=== PATIENT | female | born 1965 | race African-American/Black ===

== ENCOUNTER → 2016-08-22 | Outpatient (REF) | payer OTHER ==
[~2016-08-22] MED LIST: /PANT40TA OR; ALLE25CA OR; CLINDAMYCIN OR; COUMADIN OR; LIDO5DIS; LYRI75CA; OXYC10TA12; OXYC5CAP4; POTA20TA; PREG100CA; PROV90AE; SOMA350T; SOMA350T OR; TOPI100T; TOPI100T PO; TOPI50TA OR; TOPI50TA PO; TRAM50TA2; TYLE500T53 OR; VITA500T; WARF5VL; [UNRECOGNIZED DRUG - OTHER] TOP; kenalog TOP; prednisone OR
[2016-08-22 21:04] LABS: INR 2.58
== END ==
LOC: M SFHCADAM 17:28
PROVIDERS: ATTEND Family Medicine
DX: Z51.81 Encounter for therapeutic drug level monitoring (principal); Z79.01 Long term (current) use of anticoagulants

== ENCOUNTER → 2017-03-10 | Outpatient (CLI) | payer OTHER ==
[~2017-03-10] MED LIST changes: +PERC5TAB12 PO; +PRED20TA; +XARE20TA
--- NOTE | 2017-03-10 12:51 | REP ---
MRI LUMBAR SPINE WITHOUT CONTRAST: HISTORY: Low back pain and bilateral leg pain, comparison radiographs are from February 25, 2017. TECHNIQUE: Sagittal and axial T1 and T2-weighted scans are acquired in the usual fashion with and without fat saturation. Sequences include spin echo, turbo spin-echo, and STIR imaging sequences. MRI FINDINGS: Lumbar vertebral body heights are preserved. Alignment is normal. Pedicles and posterior elements are intact. There is no evidence of spondylolysis or spondylolisthesis. No extra spinal abnormality is observed. Normal caliber aorta is seen. Conus medullaris is normal in position and appearance at the L1-L2 disc level. Axial and sagittal images at the L1-2, L2-3, and L3-4 disc level show no significant abnormality. At L4-5, there is diffuse disc bulging and a right lateral and right foraminal disc bulge is seen. There is mild neural foraminal encroachment. There is mild facet hypertrophy bilaterally at L4-5. At L5-S1, there is mild to moderate bilateral facet osteoarthritic hypertrophy. There is diffuse disc bulging. There is a left foraminal disc protrusion producing neural foraminal encroachment at L5-S1. The right neural foramen is adequate. No central canal stenosis is seen. IMPRESSION: Left foraminal disc protrusion at L5-S1 producing neural foraminal narrowing. Right foraminal disc bulging at L4-5 with mild neural foraminal narrowing on the right at this level. Osteoarthritic facet hypertrophy at both L4-5 and L5-S1. Signed by Norris Escobar MD 03/10/2017 03:45 P
== END ==
LOC: M RAD 09:54
PROVIDERS: ATTEND Family Medicine
DX: M54.5 Low back pain (principal)

== ENCOUNTER → 2017-09-26 | Outpatient (REF) | payer OTHER | LOC: M SFHCLERA 17:07 | DX: J02.9 Acute pharyngitis, unspecified (principal) ==

== ENCOUNTER → 2018-01-24 | Outpatient (CLI) | payer OTHER | LOC: M LRY 16:13 | DX: R07.1 Chest pain on breathing (principal); R05 Cough; M51.34 Other intervertebral disc degeneration, thoracic region | CPT/HCPCS: 71046 ==

== ENCOUNTER → 2018-01-24 | Outpatient (REF) | payer OTHER | LOC: M SFHCLERA 16:10 | DX: R53.81 Other malaise (principal) ==

== ENCOUNTER → 2018-07-15 | Outpatient (REF) | payer OTHER | LOC: M SFHCWAGY 15:03 | PROVIDERS: ATTEND Nurse Practitioner Family | DX: N84.1 Polyp of cervix uteri (principal) ==

== ENCOUNTER → 2018-07-23 | Outpatient (REF) | payer OTHER ==
[~2018-07-23] MED LIST changes: -/PANT40TA OR; +PROT1TAB2 OR
[2018-07-23 17:37] LABS: HEMATOCRIT 42.6 % (36.0-47.0); HEMOGLOBIN 12.8 g/dl (12.0-15.5); MEAN CORPUSCULAR HEMOGLOBIN 25.5 pg (27.0-33.0); PLATELET COUNT, AUTOMATED 272 10^3/uL (150-450); RED BLOOD COUNT 5.01 10^6/uL (4.00-5.40); WHITE BLOOD COUNT 6.4 10^3/uL (4.0-10.0)
[2018-07-23 18:16] LABS: ALBUMIN 4.2 GM/DL (3.2-5.2); ALT/SGPT 20 U/L (12-78); BILIRUBIN,TOTAL 0.3 MG/DL (0.2-1.0); BLOOD UREA NITROGEN 19 MG/DL (7-18); CALCIUM LEVEL 9.1 MG/DL (8.5-10.1); CARBON DIOXIDE LEVEL 25 MEQ/L (21-32); CHLORIDE LEVEL 108 MEQ/L (98-107); CHOLESTEROL LEVEL 208 MG/DL (<200); CHOLESTEROL RISK RATIO 3.851 (<5); CREATININE FOR GFR 0.74 MG/DL (0.55-1.30); FREE T4 0.98 NG/DL (0.76-1.46); GLOMERULAR FILTRATION RATE > 60.0 (>51); GLUCOSE, FASTING 87 MG/DL (70-100); HDL CHOLESTEROL 54 MG/DL (>40); LDL CHOLESTEROL 141 MG/DL (<100); NON-HDL-C 154 MG/DL; POTASSIUM SERUM 4.1 MEQ/L (3.5-5.1); SODIUM LEVEL 141 MEQ/L (136-145); TOTAL PROTEIN 7.4 GM/DL (6.4-8.2); TRIGLYCERIDES LEVEL 63 MG/DL (<150)
== END ==
LOC: M SFHCLERA 12:32
PROVIDERS: ATTEND Family Medicine
DX: Q07.00 Arnold-Chiari syndrome without spina bifida or hydrocephalus (principal); I26.99 Other pulmonary embolism without acute cor pulmonale; Z79.01 Long term (current) use of anticoagulants; E78.5 Hyperlipidemia, unspecified; E55.9 Vitamin D deficiency, unspecified

== ENCOUNTER → 2018-09-09 | Outpatient (CLI) | payer OTHER ==
[~2018-09-09] MED LIST changes: +PROHANCE 279.3MG/ML 15ML VIAL (A9576) As Ordered ONE; +PROHANCE 279.3MG/ML 5ML VIAL (A9576) As Ordered ONE
--- NOTE | 2018-09-09 13:05 | REP ---
MR CERVICAL SPINE WITHOUT AND WITH CONTRAST: HISTORY: Left arm weakness. CONTRAST: ProHance 20 mL. COMPARISON: 02/11/2016. The patient is status post suboccipital craniectomy for cerebellar tonsillar ectopia. A disc bulge is present at the C5-6 level. There is minimal effacement of the thecal sac without spinal cord compression. The C5 neural foramina are patent. There is no other disc bulge or herniation. A syrinx is present in the spinal cord. The syrinx extends from the C2 level inferior to T3. The inferior most extent of the syrinx is not seen in the present examination. The syrinx measures 3.8 cm in transverse by 2.2 cm in AP dimensions at the C5 level. Increased signal intensity on T2-weighted images is present surrounding the syrinx. The spinal cord is small in size. This represents myelomalacia. There is posterior retraction of the left posterior aspect of the spinal cord at the C5 level. The spinal cord is adherent to the dura at this level secondary to adhesions. There is no abnormal enhancement. Normal signal intensity is present in the cervical vertebral bodies. IMPRESSION: 1. The patient is status post suboccipital craniectomy for cerebellar tonsillar ectopia. 2. Cervical and thoracic spinal cord syrinx. The syrinx appears unchanged in size compared to the previous study. 3. There is posterior retraction of the cervical spinal cord at the C5-6 level where the spinal cord is adherent to the dura secondary to adhesions. 4. There is cervical spondylosis at the C5-6 level without spinal cord compression. Electronically Signed by Javier German MD 09/09/2018 01:14 P
--- NOTE | 2018-09-09 13:09 | REP ---
MR BRAIN WITHOUT AND WITH CONTRAST: HISTORY: Recurrent headache. CONTRAST: ProHance 20 mL. COMPARISON: 02/11/2016. The patient is status post suboccipital craniectomy for cerebellar tonsillar ectopia. Several punctate areas of increased signal intensity on T2-weighted images are present in the periventricular and subcortical white matter. This represents small vessel ischemic disease. There is no intraparenchymal hemorrhage, infarct, mass, or midline shift. There is no abnormal enhancement. The ventricular system is normal in appearance. There is no extracerebral collection. The sinuses are clear. IMPRESSION: 1. The patient is status post suboccipital craniectomy for cerebellar tonsillar ectopia. 2. Minimal small vessel ischemic disease. Electronically Signed by Javier German MD 09/09/2018 01:14 P
== END ==
LOC: M RAD 10:29
PROVIDERS: ATTEND Family Medicine
DX: R51 Headache (principal); R29.898 Other symptoms and signs involving the musculoskeletal system; Q07.00 Arnold-Chiari syndrome without spina bifida or hydrocephalus; M50.222 Other cervical disc displacement at C5-C6 level; G95.0 Syringomyelia and syringobulbia; M47.892 Other spondylosis, cervical region
CPT/HCPCS: 70553; 72156; A9576

== ENCOUNTER → 2018-10-07 | Outpatient (REF) | payer OTHER ==
[~2018-10-07] MED LIST changes: -PROHANCE 279.3MG/ML 15ML VIAL (A9576) As Ordered ONE; -PROHANCE 279.3MG/ML 5ML VIAL (A9576) As Ordered ONE
[2018-10-13 16:11] LABS: HPV HYBRID CAPTURE II Negative (Negative)
== END ==
LOC: M SFHCWAGY 11:52
PROVIDERS: ATTEND Nurse Practitioner Family
DX: Z12.4 Encounter for screening for malignant neoplasm of cervix (principal)
CPT/HCPCS: 87624; G0123

== ENCOUNTER → 2018-10-07 | Outpatient (CLI) | payer OTHER ==
--- NOTE | 2018-10-07 13:20 | REPMRS ---
Patient History The patient states she had a clinical breast exam in 09/2018. Family history of breast cancer at age 42 in maternal aunt, breast cancer at age 56 in maternal cousin. Benign excisional biopsy of the left breast, 1980. No Hormone Replacement Therapy 3D TOMOSYNTHESIS WAS PERFORMED. [facility] lifetime risk for breast cancer is 9.1%. Digital Woman Screen Mammo: October 07, 2018 - Exam #: [id number] Bilateral CC and MLO view(s) were taken. Technologist: Randa Solano, Technologist Prior study comparison: February 22, 2013, digital woman screen mammo performed at [facility]. August 30, 2008, bilateral bilat screen digital mammo, performed at [facility]. FINDINGS: There are scattered fibroglandular densities. There has been no change in the appearance of the mammogram from the prior studies. There is a mild amount of residual fibroglandular tissue which is fairly symmetric. There is no interval development of dominant mass, architectural distortion, or clustered microcalcification suggestive of malignancy. Assessment: BI-RADS/ACR category 1 mammogram. Negative Mammogram. Recommendation Routine screening mammogram in 1 year (for women over age 40). This mammogram was interpreted with the aid of an FDA-approved computer-aided dectection system. Electronically Signed By: Rodolfo Aguayo MD 10/07/18 [id number]
== END ==
LOC: M WHC 11:00
PROVIDERS: ATTEND Nurse Practitioner Family
DX: Z12.31 Encounter for screening mammogram for malignant neoplasm of breast (principal)

== ENCOUNTER → 2018-10-11 | Outpatient (CLI) | payer OTHER ==
--- NOTE | 2018-10-11 12:26 | REP ---
Clinical: Periumbilical pain. Technique: Real time guerra scale ultrasound examination using curved array transducer. Findings: Directed ultrasound examination of the periumbilical region demonstrates no mass, fluid collection, or hernia. Impression: Unremarkable examination.
--- NOTE | 2018-10-11 16:35 | REP ---
Clinical: Pelvic pain. Technique: Transabdominal and transvaginal pelvic ultrasound with color Doppler evaluation of the ovaries. Findings: Bladder is unremarkable and measures 9.0 x 7.8 x 6.0 cm. Enlarged heterogeneous myomatous uterus measures 11.1 x 4.6 x 5.2 cm and includes an 8.6 x 5.2 x 5.1 cm fibroid originating from the right lower uterine segment. Smaller subtle myomatous changes cannot be excluded. The endometrial complex appears somewhat thickened to 15 mm. The bilateral ovaries are normal in appearance and without evidence for torsion. Right ovary measures 2.4 x 1.3 x 1.8 cm; RI 0.62. Left ovary measures 2.5 x 1.0 x 1.8 cm; RI 0.55. No pelvic fluid or adnexal mass lesion. Impression: 1. Heterogeneous myomatous uterus with large right uterine subserosal fibroid.
== END ==
LOC: M WHC 10:14
PROVIDERS: ATTEND Nurse Practitioner Family
DX: R19.05 Periumbilic swelling, mass or lump (principal); D25.9 Leiomyoma of uterus, unspecified

== ENCOUNTER 2018-11-18 17:32 | Emergency (ER) | payer OTHER ==
[~2018-11-18] VITALS: Ht 162.6 cm; Wt 107.3 kg
[2018-11-18] MEDS ORDERED: TRAM50TA2 (17:42)
[2018-11-18] MEDS ORDERED: PERCOCET 5MG/325MG TAB PO ONE (20:30)
[2018-11-18] MEDS ORDERED: diazePAM 10 MG TAB PO ONE (20:30)
--- NOTE | 2018-11-18 21:12 | REPVR ---
EXAM: CT Lumbar Spine Without Contrast EXAM DATE/TIME: 11/18/2018 8:30 PM CLINICAL HISTORY: 53 years old, female; Low back pain; Additional info: Severe pain, no injury TECHNIQUE: Imaging protocol: Computed tomography images of the lumbar spine without contrast. Coronal and sagittal reformatted images were created and reviewed. Radiation optimization: All CT scans at this facility use at least one of these dose optimization techniques: automated exposure control; mA and/or kV adjustment per patient size (includes targeted exams where dose is matched to clinical indication); or iterative reconstruction. COMPARISON: No relevant prior studies available. FINDINGS: Vertebrae: The lumbar vertebra appear in alignment. The facet joints appear in alignment. Discs/Spinal canal/Neural foramina: L5-S1: There is moderate broad-based disc protrusion causing moderate impression on the thecal sac. There is severe bilateral L5 neural foramina narrowing greater on the left and this is secondary to disc protrusion into the caudal aspect of the L5 neural foramina. L4-L5: There is a moderate broad-based disc protrusion causing moderate impression on the thecal sac. There is severe bilateral L4 neural foramina narrowing secondary to disc protrusion into the caudal aspect of the neural foramina. L3-L4: There is mild broad-based bulge of the disc. IMPRESSION: 1. The L4-L5 level demonstrates moderate broad-based disc protrusion and severe bilateral L4 neural foramina narrowing. 2. The L5-S1 level demonstrates moderate broad-based disc protrusion and severe bilateral L5 neural foramina narrowing. Electronically signed by: Rupert Winters On 11/18/2018 21:12:16 PM
[2018-11-18] MEDS ORDERED: PRED20TA PO (21:30)
[2018-11-18] MEDS ORDERED: ROBA500T PO (21:30)
[2018-11-18 21:40] VITALS: BP 106/64
--- NOTE | 2018-11-22 21:37 | ED PDOC ---
Post-Departure Follow-Up ranjit correa and jaymie faxed formal report of ct ls spine for fu Saurabh Bradley MD Nov 22, 2018 21:37
== END 2018-11-18 21:41 | disposition home or self-care (01) ==
LOC: M ED 17:32
DX: M51.26 Other intervertebral disc displacement, lumbar region (principal); S39.012A Strain of muscle, fascia and tendon of lower back, initial encounter; X58.XXXA Exposure to other specified factors, initial encounter; Y92.89 Other specified places as the place of occurrence of the external cause; Q07.00 Arnold-Chiari syndrome without spina bifida or hydrocephalus; Z79.899 Other long term (current) drug therapy; Z88.1 Allergy status to other antibiotic agents; Z88.2 Allergy status to sulfonamides; Z91.041 Radiographic dye allergy status

== ENCOUNTER → 2019-01-08 | Outpatient (CLI) | payer OTHER ==
[~2019-01-08] MED LIST changes: +PRED20TA PO; +ROBA500T PO
--- NOTE | 2019-01-08 15:52 | REPVR ---
PROCEDURE INFORMATION: Exam: MR Lumbar Spine Without Contrast. Exam date and time: 01/08/2019 1:58 PM Clinical history: 54 years old, female; Low back pain; Additional info: Spinal stenosis L region TECHNIQUE: Imaging protocol: Multiplanar magnetic resonance images of the lumbar spine without intravenous contrast. COMPARISON: MRI-Spine, L.S. without con 03/10/2017 10:21 AM FINDINGS: Vertebral body heights are intact. Alignment is maintained. No pars defect is identified. The conus is unremarkable in appearance, with its tip at the L1-2 level. There are varying degrees of disc desiccation indicating intervertebral disc degeneration. This is generally mildly progressive. There are again some degenerative endplate changes at L5-S1. A similar 8 mm high T2 signal right renal lesion probably represents a cyst. The visualized abdominal structures appear otherwise unremarkable. L1-2: No significant disc displacement. L2-3: No significant disc displacement. L3-4: Mildly larger disc bulge combining with facet arthrosis to lead to mildly increased, now mild bilateral neural foraminal narrowing without significant spinal stenosis. There is small fluid in the left facet joint. L4-5: Mildly larger disc bulge combining with facet arthrosis to lead to mildly increased, now mild to moderate right and mild left neural foraminal narrowing without significant spinal stenosis. There is small fluid in the right facet joint. L5-S1: Mildly larger diffuse bulge with a broad-based left paracentral/foraminal protrusion combining with facet arthrosis to lead to mildly increased, now mild to moderate right and moderate left neural foraminal narrowing with very mild new left lateral recess narrowing, without significant central canal stenosis. If surgery is considered, recommend level confirmation. IMPRESSION: Multilevel disc desiccation indicating intervertebral disk degeneration, mildly progressive as compared with 03/10/17, with disc displacements as described. Disc displacements are mildly larger as above. Electronically signed by: Moy Elizabeth On 01/08/2019 15:52:27 PM
== END ==
LOC: M RAD 12:24
PROVIDERS: ATTEND Orthopaedic Surgery
DX: M48.062 Spinal stenosis, lumbar region with neurogenic claudication (principal)

== ENCOUNTER → 2019-01-14 | Outpatient (REF) | payer OTHER ==
[2019-01-14 15:24] LABS: BASO % 0.6 % (0.0-1.0); EOS # 0.1 10^3/uL (0.0-0.5); HEMATOCRIT 37.4 % (36.0-47.0); HEMOGLOBIN 11.7 g/dl (12.0-15.5); LYMPH # 2.9 10^3/uL (1.5-5.0); LYMPH % 39.9 % (24.0-44.0); MEAN CORPUSCULAR HGB CONC 31.3 g/dl (32.0-36.5); MEAN CORPUSCULAR VOLUME 83.1 fl (80.0-96.0); MONO # 0.6 10^3/uL (0.0-0.8); MONO % 8.1 % (0.0-5.0); NEUTROPHILS # 3.5 10^3/uL (1.5-8.5); NEUTROPHILS % 49.1 % (36.0-66.0); PLATELET COUNT, AUTOMATED 288 10^3/uL (150-450); WHITE BLOOD COUNT 7.2 10^3/uL (4.0-10.0)
[2019-01-14 15:33] LABS: C REACTIVE PROTEIN QUANTITATIV 1.19 MG/DL (0.00-0.30); TOTAL PROTEIN 6.8 GM/DL (6.4-8.2)
[2019-01-14 15:59] LABS: ERYTHROCYTE SEDIMENTATION RATE 31 mm/hr (0-30)
[2019-01-18 09:41] LABS: ALBUMIN 3.73 GM/DL (3.29-5.55); ALBUMIN % 54.8 % (55.8-66.1); ALPHA-1-GLOBULIN % 5.5 % (2.9-4.9); ALPHA-1-GLOBULINS 0.37 GM/DL (0.17-0.41); ALPHA-2-GLOBULINS 0.59 GM/DL (0.42-0.99); ALPHA-2-GLOBULINS % 8.7 % (7.1-11.8); BETA-1-GLOBULINS 0.45 GM/DL (0.28-0.60); BETA-1-GLOBULINS % 6.6 % (4.7-7.2); BETA-2-GLOBULINS 0.52 GM/DL (0.19-0.55); BETA-2-GLOBULINS % 7.7 % (3.2-6.5); GAMMA GLOBULIN % 16.7 % (11.1-18.8); GAMMA GLOBULINS 1.14 GM/DL (0.65-1.58)
== END ==
LOC: M LABDRAW1 12:52
PROVIDERS: ATTEND Orthopaedic Surgery
DX: M48.062 Spinal stenosis, lumbar region with neurogenic claudication (principal)

== ENCOUNTER → 2019-01-18 | Outpatient (CLI) | payer OTHER ==
--- NOTE | 2019-01-18 15:58 | REP ---
TRIPLE PHASE BONE SCAN LUMBAR REGION: Following the intravenous administration of 21.9 mCi technetium 99m MDP, the patient's lumbar region is imaged in the flow phase, immediate blood pool phase and three-hour delayed phase in multiple projections. I do not see significant abnormal blood flow or blood pooling. On delayed images, mild increased uptake is seen at the posterior facets of L3-4 and L4-5. No other significant abnormal uptake is seen in the lumbar region or in the pelvis. IMPRESSION: Mild increased uptake at the facets of L3-4 and L4-5 likely due to arthritis at these sites. Electronically Signed by Rodolfo Aguayo MD 01/19/2019 04:30 P
== END ==
LOC: M RAD 10:19
PROVIDERS: ATTEND Orthopaedic Surgery
DX: M48.062 Spinal stenosis, lumbar region with neurogenic claudication (principal)
CPT/HCPCS: 78315; A9503

== ENCOUNTER → 2019-01-27 | Outpatient (REF) | payer OTHER | LOC: M LAB REF 17:40 | PROVIDERS: ATTEND Obstetrics & Gynecology | DX: N85.8 Other specified noninflammatory disorders of uterus (principal) ==

== ENCOUNTER → 2019-02-24 | Outpatient (REF) | payer OTHER ==
[2019-02-24 19:16] LABS: HEMATOCRIT 39.8 % (36.0-47.0); HEMOGLOBIN 11.7 g/dl (12.0-15.5); MEAN CORPUSCULAR HEMOGLOBIN 25.3 pg (27.0-33.0); MEAN CORPUSCULAR HGB CONC 29.4 g/dl (32.0-36.5); PLATELET COUNT, AUTOMATED 275 10^3/uL (150-450); RED BLOOD COUNT 4.63 10^6/uL (4.00-5.40); WHITE BLOOD COUNT 6.8 10^3/uL (4.0-10.0)
[2019-02-24 19:46] LABS: ALBUMIN 3.6 GM/DL (3.2-5.2); ALT/SGPT 26 U/L (12-78); BILIRUBIN,TOTAL 0.3 MG/DL (0.2-1.0); BLOOD UREA NITROGEN 20 MG/DL (7-18); CALCIUM LEVEL 9.3 MG/DL (8.5-10.1); CARBON DIOXIDE LEVEL 25 MEQ/L (21-32); CHLORIDE LEVEL 111 MEQ/L (98-107); CREATININE FOR GFR 0.88 MG/DL (0.55-1.30); FREE T4 0.84 NG/DL (0.76-1.46); GLOMERULAR FILTRATION RATE > 60.0 (>51); GLUCOSE, FASTING 83 MG/DL (70-100); SODIUM LEVEL 142 MEQ/L (136-145); TOTAL PROTEIN 7.6 GM/DL (6.4-8.2)
[2019-02-24 19:47] LABS: VITAMIN B12 LEVEL 404 PG/ML (247-911)
[2019-02-24 19:49] LABS: FOLATE 17.3 NG/ML (>5.4)
== END ==
LOC: M SFHCADAM 16:18
PROVIDERS: ATTEND Family Medicine
DX: I26.99 Other pulmonary embolism without acute cor pulmonale (principal); G56.03 Carpal tunnel syndrome, bilateral upper limbs

== ENCOUNTER → 2019-02-24 | Outpatient (CLI) | payer OTHER ==
--- NOTE | 2019-02-24 17:32 | REP ---
Two-view chest: 02/24/2019. Indication: Preoperative evaluation. Comparison: 01/24/2018. Findings: The lungs are clear. There is no pleural effusion or pneumothorax. The cardiac silhouette is not enlarged. Impression: Clear lungs. Electronically Signed by Dimas Moyer DO 02/24/2019 05:23 P
== END ==
LOC: M ADAMS 16:54
PROVIDERS: ATTEND Family Medicine
DX: Z01.818 Encounter for other preprocedural examination (principal)

== ENCOUNTER → 2019-03-25 | Outpatient (REF) | payer OTHER ==
[~2019-03-25] MED LIST changes: +GABA-845 PO; +TIZA4TAB4 PO; +TOPI100T9 PO; +TOPI200T7 PO; +TRAM50TA2 PO; +VITA100T59 PO; -XARE20TA; +XARE20TA PO
[2019-03-25 11:56] LABS: HEMATOCRIT 41.9 % (36.0-47.0); HEMOGLOBIN 12.8 g/dl (12.0-15.5); MEAN CORPUSCULAR HEMOGLOBIN 25.5 pg (27.0-33.0); MEAN CORPUSCULAR HGB CONC 30.5 g/dl (32.0-36.5); MEAN CORPUSCULAR VOLUME 83.6 fl (80.0-96.0); PLATELET COUNT, AUTOMATED 279 10^3/uL (150-450); RED BLOOD COUNT 5.01 10^6/uL (4.00-5.40); WHITE BLOOD COUNT 7.1 10^3/uL (4.0-10.0)
[2019-03-25 12:07] LABS: INR 1.86; PROTHROMBIN TIME 21.2 SECONDS (11.8-14.0)
[2019-03-25 12:36] LABS: BLOOD UREA NITROGEN 19 MG/DL (7-18); CALCIUM LEVEL 9.5 MG/DL (8.5-10.1); CARBON DIOXIDE LEVEL 25 MEQ/L (21-32); CHLORIDE LEVEL 108 MEQ/L (98-107); CREATININE FOR GFR 0.78 MG/DL (0.55-1.30); GLOMERULAR FILTRATION RATE > 60.0 (>51); GLUCOSE, FASTING 88 MG/DL (70-100); POTASSIUM SERUM 3.8 MEQ/L (3.5-5.1); SODIUM LEVEL 140 MEQ/L (136-145)
== END ==
LOC: M SFHCPLAZ 10:28
PROVIDERS: ATTEND Family Medicine
DX: Z01.818 Encounter for other preprocedural examination (principal)

== ENCOUNTER 2019-03-28 09:07 | Day surgery (SDC) | payer OTHER ==
[~2019-03-28] VITALS: Ht 162.6 cm; Wt 112.5 kg
[~2019-03-28 09:07] MED LIST changes: +KETOROLAC 60 MG/2 ML VIAL (J1885) As Ordered ONE; +LIDOCAINE 2% INJ 100 MG/5 ML SDV (FOR ANES.) As Ordered ONE; +LR 1,000 ML IV ONE; +ONDANSETRON 4MG/2ML VIAL (J2405) As Ordered ONE; +PROPOFOL 200 MG/20 ML VIAL As Ordered ONE; +ROCURONIUM BROMIDE 50 MG/5 ML VIAL As Ordered ONE; -VITA100T59 PO; +ceFAZolin SOD 2 GM in IV 1 EA IV ONE; +dexameTHASONE 4 MG/ML 1ML VIAL (J1100) As Ordered ONE
[2019-03-28 09:45] LABS: HEMATOCRIT 42.7 % (36.0-47.0); HEMOGLOBIN 12.7 g/dl (12.0-15.5); MEAN CORPUSCULAR HEMOGLOBIN 25.2 pg (27.0-33.0); MEAN CORPUSCULAR HGB CONC 29.7 g/dl (32.0-36.5); MEAN CORPUSCULAR VOLUME 84.9 fl (80.0-96.0); PLATELET COUNT, AUTOMATED 272 10^3/uL (150-450); RED BLOOD COUNT 5.03 10^6/uL (4.00-5.40); WHITE BLOOD COUNT 6.9 10^3/uL (4.0-10.0)
[2019-03-28] MEDS ORDERED: METHYLENE BLUE 0.5% (5MG/ML) 10 ML AMP (PROVAYBLUE)(Q9968 PER 1MG) As Ordered ONE (09:50)
[2019-03-28] MEDS ORDERED: fentaNYL 250 MCG/5 ML INJECTION (J3010) As Ordered ONE (09:50)
[2019-03-28] MEDS ORDERED: MIDAZOLAM INJ 2 MG/2 ML VIAL (J2250) As Ordered ONE (09:50)
[2019-03-28] MEDS ORDERED: BUPIVACAINE HCL 0.25% 30 ML VIAL As Ordered ONE (09:50)
[2019-03-28 10:00] LABS: HCG, SERUM QUALITATIVE NEGATIVE (NEGATIVE)
[2019-03-28] MEDS ORDERED: VITA100T59 PO (10:09)
[2019-03-28] MEDS ORDERED: ROCURONIUM BROMIDE 50 MG/5 ML VIAL As Ordered ONE ×2 (10:39→14:01)
[2019-03-28] MEDS ORDERED: PROPOFOL 200 MG/20 ML VIAL As Ordered ONE (10:40)
[2019-03-28] MEDS ORDERED: LACRILUBE (AKWA TEARS) OPHTH OINT 3.5 GM As Ordered ONE (10:45)
[2019-03-28] MEDS ORDERED: ACETAMINOPHEN 1000MG 100ML IV BTL (OFIRMEV) (J0131 PER 10MG) As Ordered ONE (11:06)
[2019-03-28] MEDS ORDERED: SUGAMMADEX SODIUM 500 MG/5 ML VIAL (BRIDION) As Ordered ONE (11:07)
[2019-03-28] MEDS ORDERED: fentaNYL 100 MCG/2 ML INJECTION (J3010) As Ordered ONE ×2 (11:51→12:56)
[2019-03-28] MEDS ORDERED: HYDROmorphone HCL 2 MG/ML 1ML VIAL (J1170) As Ordered ONE (12:47)
[2019-03-28] MEDS ORDERED: LABETALOL HCL 100 MG/20 ML VIAL As Ordered ONE (13:43)
[2019-03-28] MEDS ORDERED: ceFAZolin 2 GM/D5W 50 ML IV BAG (J0690 PER 500MG) As Ordered ONE (14:53)
[2019-03-28] MEDS ORDERED: METOCLOPRAMIDE INJ 10MG/2ML VIAL (J2765) IV PRN (15:45)
[2019-03-28] MEDS ORDERED: ONDANSETRON 4MG/2ML VIAL (J2405) IV PRN (15:45)
[2019-03-28] MEDS ORDERED: LR 1,000 ML IV SCH (15:45)
[2019-03-28] MEDS: LR 1,000 ML IV SCH (15:48)
[2019-03-28] MEDS: PERCOCET 5MG/325MG TAB PO PRN ×3 (15:55→22:26)
[2019-03-28] MEDS: fentaNYL 100 MCG/2 ML INJECTION (J3010) IV PRN ×4 (15:55→16:34)
[2019-03-28] MEDS ORDERED: ONDANSETRON 4 MG ORAL DISINTEGRATING TAB (Q0162 PER 1MG) PO PRN (16:00)
[2019-03-28] MEDS ORDERED: PERCOCET 5MG/325MG TAB PO PRN (16:00)
[2019-03-28] MEDS ORDERED: PROMETHAZINE INJ 25 MG/ML VIAL (J2550) IV PRN (16:00)
[2019-03-28 20:15] VITALS: BP 99/70
[2019-03-28] MEDS: DOCUSATE SODIUM 100 MG CAP PO SCH (20:52)
[2019-03-28] MEDS: KETOROLAC 30 MG/ML VIAL (J1885) IV SCH (20:52)
[2019-03-28 21:00] VITALS: BP 100/70
[2019-03-28 22:00] VITALS: BP 102/68
[2019-03-29] MEDS: LR 1,000 ML IV SCH ×2 (00:01→07:48)
[2019-03-29 03:02] VITALS: BP 102/65
[2019-03-29] MEDS: KETOROLAC 30 MG/ML VIAL (J1885) IV SCH ×2 (03:56→08:19)
[2019-03-29 06:14] LABS: BASO % 0.2 % (0.0-1.0); EOS # 0.1 10^3/uL (0.0-0.5); EOS % 0.6 % (0.0-3.0); HEMATOCRIT 33.4 % (36.0-47.0); LYMPH # 2.8 10^3/uL (1.5-5.0); LYMPH % 28.4 % (24.0-44.0); MEAN CORPUSCULAR HEMOGLOBIN 25.6 pg (27.0-33.0); MEAN CORPUSCULAR HGB CONC 30.2 g/dl (32.0-36.5); MEAN CORPUSCULAR VOLUME 84.8 fl (80.0-96.0); MONO % 10.4 % (0.0-5.0); NEUTROPHILS # 5.8 10^3/uL (1.5-8.5); PLATELET COUNT, AUTOMATED 212 10^3/uL (150-450); RED BLOOD COUNT 3.94 10^6/uL (4.00-5.40); WHITE BLOOD COUNT 9.7 10^3/uL (4.0-10.0)
[2019-03-29 06:21] LABS: HEMOGLOBIN 10.1 g/dl (12.0-15.5)
[2019-03-29 06:41] VITALS: BP 115/69
[2019-03-29] MEDS: PERCOCET 5MG/325MG TAB PO PRN ×2 (08:19→14:26)
[2019-03-29] MEDS: DOCUSATE SODIUM 100 MG CAP PO SCH (08:20)
[2019-03-29] MEDS ORDERED: PERCOCET PO (08:54)
[2019-03-29] MEDS ORDERED: DOCU100C16 PO (08:54)
[2019-03-29] MEDS ORDERED: IBUPROFEN 800 MG TAB PO SCH (23:00)
== END 2019-03-29 14:30 | disposition home or self-care (01) ==
LOC: M SDC 09:07 → M MS5PR 17:20 → M SDC 03-29 14:30
PROVIDERS: ATTEND Obstetrics & Gynecology
DX: N93.9 Abnormal uterine and vaginal bleeding, unspecified (principal); N84.0 Polyp of corpus uteri; D25.1 Intramural leiomyoma of uterus; N80.0 Endometriosis of uterus; Z88.2 Allergy status to sulfonamides; Z91.041 Radiographic dye allergy status; Q07.00 Arnold-Chiari syndrome without spina bifida or hydrocephalus; G89.29 Other chronic pain; Z79.01 Long term (current) use of anticoagulants; F32.9 Major depressive disorder, single episode, unspecified; Z86.711 Personal history of pulmonary embolism; E66.9 Obesity, unspecified
CPT/HCPCS: 36415; 58571; 84703; 85025; 85027; 86850; 86900; 86901; 86920; 88307; 96374; 96376; J0131; J0690; J1100; J1170; J1885; J2250; J2405; J2765; J3010; Q9968

== ENCOUNTER 2020-06-21 18:15 | Emergency (ER) | payer OTHER ==
[~2020-06-21] VITALS: Ht 162.6 cm; Wt 112.9 kg
[~2020-06-21 18:15] MED LIST changes: +DOCU100C16 PO; -KETOROLAC 60 MG/2 ML VIAL (J1885) As Ordered ONE; -LIDOCAINE 2% INJ 100 MG/5 ML SDV (FOR ANES.) As Ordered ONE; -LR 1,000 ML IV ONE; -ONDANSETRON 4MG/2ML VIAL (J2405) As Ordered ONE; +PERCOCET PO; -PROPOFOL 200 MG/20 ML VIAL As Ordered ONE; -ROCURONIUM BROMIDE 50 MG/5 ML VIAL As Ordered ONE; +VITA100T59 PO; -ceFAZolin SOD 2 GM in IV 1 EA IV ONE; -dexameTHASONE 4 MG/ML 1ML VIAL (J1100) As Ordered ONE
[2020-06-21] MEDS ORDERED: ACETAMINOPHEN 650MG ER TAB (TYLENOL ARTHRITIS) PO ONE (19:20)
--- NOTE | 2020-06-21 19:45 | REP ---
INDICATION: fall COMPARISON: None. TECHNIQUE: AP and frog-lateral views of the right hip FINDINGS: Generalized age-related changes include subtle increased sclerosis to the acetabulum with minimal joint space narrowing. No further overt osteoarthritic or significant degenerative changes are appreciated. No evidence for acute or healed injury. Surrounding soft tissues are normal. IMPRESSION: Mild generalized age-related changes. No acute fracture or dislocation. <Electronically signed by Fer Bynum > 06/21/201941
--- NOTE | 2020-06-21 19:46 | REP ---
INDICATION: fall COMPARISON: None. TECHNIQUE: AP, lateral, bilateral oblique and sunrise views. FINDINGS: Mild tricompartmental osteoarthritic changes are appreciated. Incidental flabella noted. No acute fracture or dislocation identified. IMPRESSION: Mild tricompartmental osteoarthritic changes. No obvious acute fracture or dislocation. <Electronically signed by Fer Bynum > 06/21/201942
[2020-06-21 21:00] VITALS: BP 140/83
== END 2020-06-21 21:05 | disposition home or self-care (01) ==
LOC: M ED 18:15
DX: S80.01XA Contusion of right knee, initial encounter (principal); S70.11XA Contusion of right thigh, initial encounter; Z79.01 Long term (current) use of anticoagulants; Z88.1 Allergy status to other antibiotic agents; Z88.2 Allergy status to sulfonamides; Z91.041 Radiographic dye allergy status; Y92.9 Unspecified place or not applicable; Y93.9 Activity, unspecified; Y99.9 Unspecified external cause status

== ENCOUNTER → 2020-09-28 | Outpatient (CLI) | payer OTHER ==
[~2020-09-28] MED LIST changes: +GABA-283 PO; -GABA-845 PO
--- NOTE | 2020-09-30 13:13 | REP ---
INDICATION: R10.2 PELVIC PAIN COMPARISON: None. TECHNIQUE: Transabdominal pelvic ultrasound followed by transvaginal examination for better evaluation of the endometrium and adnexa with color Doppler evaluation of the ovaries. FINDINGS: Bladder is unremarkable and measures 8.8 x 8.6 x 7.1 cm. Patient is status post hysterectomy without pelvic fluid or adnexal mass lesion. Bilateral ovaries are normal in appearance and vascularity without evidence for torsion. Right ovary measures 1.7 x 1.0 x 1.1 cm and includes 1 cm presumed involuting cyst; R I = 0.40. Left ovary measures 2.5 x 1.5 x 1.5 cm; R I = 0.64. IMPRESSION: 1. Prior hysterectomy. 2. Complex right ovarian cyst likely physiologic. If the patient remains symptomatic consider re-evaluation in 4-6 weeks. 3. No pelvic fluid or adnexal mass lesion. <Electronically signed by Fer Bynum > 09/30/20 [id number]
== END ==
LOC: M WHC 09:56
PROVIDERS: ATTEND Obstetrics & Gynecology
DX: R10.2 Pelvic and perineal pain (principal)

== ENCOUNTER → 2021-01-30 | Outpatient (CLI) | payer OTHER ==
--- NOTE | 2021-01-30 11:05 | REP ---
INDICATION: PELVIC PAIN COMPARISON: None. TECHNIQUE: Transabdominal pelvic ultrasound followed by transvaginal examination for better evaluation of the adnexa. FINDINGS: Bladder is unremarkable and measures 12.2 x 8.4 x 8.6 cm. Patient is noted to be status post hysterectomy. No pelvic mass or abnormal fluid collection identified. Ovaries are not visualized on either transabdominal or transvaginal evaluation. IMPRESSION: Prior hysterectomy. Ovaries not visualized. No obvious abnormality. <Electronically signed by Fer Bynum > 01/30/21 [id number]
== END ==
LOC: M WHC 10:04
PROVIDERS: ATTEND Obstetrics & Gynecology
DX: R10.2 Pelvic and perineal pain (principal)

== ENCOUNTER → 2021-02-26 | Outpatient (CLI) | payer OTHER ==
[~2021-02-26] MED LIST changes: +GASTROGRAFIN SOLUTION 30ML (Q9963) As Ordered ONE; +ISOVUE-370 76% 100ML VIAL As Ordered ONE
--- NOTE | 2021-02-26 17:21 | REP ---
INDICATION: UPPER ABD PAIN. COMPARISON: CT 02/19/2017. TECHNIQUE: CT abdomen and pelvis performed without IV contrast. CT abdomen pelvis performed with IV contrast as well, following intravenous administration of 100 cc of Isovue 370. Sagittal and coronal reconstruction images are performed. FINDINGS: Lung bases: Unremarkable. Liver: Sub cm nodule in the subcapsular right hepatic lobe on image 17 again seen and stable, liver otherwise unremarkable. Gallbladder: No calcified stone or mass it is a contracted with retained food in the stomach. Spleen: Normal. Adrenals: Normal. Pancreas: Normal. Kidneys: No mass, cyst, stone, hydronephrosis or hydroureter. Small and large bowel: Oral contrast through the bowel without dilatation, wall thickening or mesenteric edema adjacent. Colon grossly unremarkable. Abdominal wall: There is a periumbilical abdominal wall hernia with only omental fat extending into it and no bowel herniation. The hernia gap is 2.3 x 1.6 cm in the mental fat has a maximum diameter 4.3 cm. Free fluid: None. Adenopathy: Aorta: No aneurysm or dissection. Appendix: Radiodense material in the appendix suggests oral contrast or appendicoliths but no evidence of thickening of the appendix, periappendiceal inflammatory change or other acute finding. Osseous structures: Unremarkable. Pelvis: Bladder only partly filled with no wall thickening, mass or stone. Interval hysterectomy with the vaginal cuff intact and no adnexal mass on today's study. No ventral or inguinal hernia. No pathologic sized inguinal adenopathy or pelvic lymphadenopathy. IMPRESSION: 1. The colon, small bowel loops, stomach and appendix without acute finding. 2. Solid organs in the upper abdomen as well as the gallbladder are unremarkable. 3. Interval hysterectomy. No pelvic mass, abdominal or pelvic ascites, abdominal or pelvic lymphadenopathy or other acute finding. 4. Ventral abdominal wall hernia periumbilical region with only omental fat in the hernia extending to the left of midline. <Electronically signed by Yobani Shepherd > 02/26/21 [id number]
== END ==
LOC: M RAD 13:12
PROVIDERS: ATTEND Obstetrics & Gynecology
DX: R10.10 Upper abdominal pain, unspecified (principal); K43.9 Ventral hernia without obstruction or gangrene
CPT/HCPCS: 74178; Q9963; Q9967

== ENCOUNTER → 2021-03-04 | Outpatient (CLI) | payer OTHER ==
[~2021-03-04] MED LIST changes: -GASTROGRAFIN SOLUTION 30ML (Q9963) As Ordered ONE; -ISOVUE-370 76% 100ML VIAL As Ordered ONE
--- NOTE | 2021-03-04 12:52 | REP ---
INDICATION: CERVICALGIA COMPARISON: None. TECHNIQUE: AP, lateral, flexion/extension views of the cervical spine. FINDINGS: Alignment and lordosis maintained. Mild age-related degenerative changes with subtle anterior spurring noted. Minimal disc space narrowing at C5-6 and C6-7 cannot be excluded. No further overt degenerative changes are identified. No acute fracture or subluxation. IMPRESSION: Presumed mild age-related degenerative changes. <Electronically signed by Fer Bynum > 03/04/21 [id number]
== END ==
LOC: M SOG 11:11
PROVIDERS: ATTEND Orthopaedic Surgery
DX: M54.2 Cervicalgia (principal)

== ENCOUNTER → 2021-03-21 | Outpatient (CLI) | payer OTHER ==
[~2021-03-21] MED LIST changes: +PROHANCE 279.3MG/ML 15ML VIAL As Ordered ONE; +PROHANCE 279.3MG/ML 5ML VIAL As Ordered ONE; +TIZA10TA PO; -TIZA4TAB4 PO
== END ==
LOC: M RAD 17:36
PROVIDERS: ATTEND Orthopaedic Surgery
DX: G54.2 Cervical root disorders, not elsewhere classified (principal); M54.2 Cervicalgia

== ENCOUNTER 2021-03-28 13:23 | Emergency (ER) | payer OTHER ==
[~2021-03-28] VITALS: Ht 157.5 cm; Wt 114.5 kg
[~2021-03-28 13:23] MED LIST changes: -PROHANCE 279.3MG/ML 15ML VIAL As Ordered ONE; -PROHANCE 279.3MG/ML 5ML VIAL As Ordered ONE
[2021-03-28 13:24] VITALS: BP 121/83
[2021-03-28] MEDS ORDERED: GABA-283 PO (13:41)
[2021-03-28 17:20] LABS: BASO % 0.4 % (0.0-1.0); EOS # 0.2 10^3/uL (0.0-0.5); EOS % 2.2 % (0.0-3.0); HEMATOCRIT 40.9 % (36.0-47.0); HEMOGLOBIN 12.6 g/dl (12.0-15.5); LYMPH # 2.5 10^3/uL (1.5-5.0); LYMPH % 30.1 % (24.0-44.0); MEAN CORPUSCULAR HEMOGLOBIN 25.7 pg (27.0-33.0); MEAN CORPUSCULAR HGB CONC 30.8 g/dl (32.0-36.5); MEAN CORPUSCULAR VOLUME 83.3 fl (80.0-96.0); MONO # 0.9 10^3/uL (0.0-0.8); MONO % 10.2 % (2.0-8.0); NEUTROPHILS # 4.8 10^3/uL (1.5-8.5); NEUTROPHILS % 56.7 % (36.0-66.0); PLATELET COUNT, AUTOMATED 243 10^3/uL (150-450); RED BLOOD COUNT 4.91 10^6/uL (4.00-5.40); WHITE BLOOD COUNT 8.4 10^3/uL (4.0-10.0)
[2021-03-28 17:46] LABS: BLOOD UREA NITROGEN 18 MG/DL (7-18); CALCIUM LEVEL 9.7 MG/DL (8.5-10.1); CARBON DIOXIDE LEVEL 24 MEQ/L (21-32); CHLORIDE LEVEL 109 MEQ/L (98-107); CREATININE FOR GFR 0.62 MG/DL (0.55-1.30); GLOMERULAR FILTRATION RATE > 60.0 (>51); GLUCOSE, FASTING 91 MG/DL (70-100); MAGNESIUM LEVEL 2.2 MG/DL (1.8-2.4); POTASSIUM SERUM 4.3 MEQ/L (3.5-5.1); SODIUM LEVEL 140 MEQ/L (136-145)
[2021-03-28] MEDS ORDERED: traMADol 50 MG TAB PO ONE (18:00)
[2021-03-28] MEDS ORDERED: ACETAMINOPHEN TAB 650MG DOSE (2X325MG) PO ONE (18:00)
[2021-03-28 18:43] LABS: FREE T4 0.89 NG/DL (0.76-1.46)
== END 2021-03-28 19:18 | disposition home or self-care (01) ==
LOC: M ED 13:23
DX: I83.93 Asymptomatic varicose veins of bilateral lower extremities (principal); G93.5 Compression of brain; F33.9 Major depressive disorder, recurrent, unspecified; Z86.711 Personal history of pulmonary embolism; Z88.1 Allergy status to other antibiotic agents; Z88.2 Allergy status to sulfonamides; Z79.899 Other long term (current) drug therapy; Z79.01 Long term (current) use of anticoagulants

== ENCOUNTER → 2021-04-06 | Outpatient (CLI) | payer OTHER | LOC: M LABSMTC 10:12 | PROVIDERS: ATTEND Anesthesiology | DX: Z01.818 Encounter for other preprocedural examination (principal); Z11.52 Encounter for screening for COVID-19 ==

== ENCOUNTER 2021-04-11 11:24 | Day surgery (SDC) | payer OTHER ==
[~2021-04-11] VITALS: Ht 157.5 cm; Wt 113.4 kg
[~2021-04-11 11:24] MED LIST changes: +LR 1,000 ML IV ONE; +ceFAZolin SOD 2 GM in IV 1 EA IV ONE
[2021-04-11] MEDS ORDERED: ROCURONIUM BROMIDE 50 MG/5 ML VIAL As Ordered ONE ×2 (12:27→14:46)
[2021-04-11] MEDS ORDERED: propofoL 200 MG/20 ML VIAL As Ordered ONE (12:27)
[2021-04-11] MEDS ORDERED: fentaNYL 100 MCG/2 ML INJECTION As Ordered ONE ×2 (12:27→14:07)
[2021-04-11] MEDS ORDERED: LIDOCAINE 2% 100MG/5ML SDV (FOR ANES.) As Ordered ONE ×2 (12:27→13:22)
[2021-04-11] MEDS ORDERED: dexameTHASONE 4 MG/ML 1ML VIAL (J1100 PER 1MG) As Ordered ONE (12:28)
[2021-04-11] MEDS ORDERED: MIDAZOLAM INJ 2MG/2ML VIAL (J2250 PER 1MG) As Ordered ONE (12:28)
[2021-04-11] MEDS ORDERED: ONDANSETRON 4MG/2ML VIAL As Ordered ONE (12:28)
[2021-04-11] MEDS ORDERED: BUPIVACAINE/EPIN 0.25% 30 ML VIAL As Ordered ONE (13:20)
[2021-04-11] MEDS ORDERED: ACETAMINOPHEN 1000MG 100ML IV BTL (OFIRMEV) (J0131 PER 10MG) As Ordered ONE (14:25)
[2021-04-11] MEDS ORDERED: LR 1,000 ML IV SCH (15:35)
[2021-04-11] MEDS ORDERED: fentaNYL 100 MCG/2 ML INJECTION IV PRN (15:35)
[2021-04-11] MEDS ORDERED: ONDANSETRON 4MG/2ML VIAL IV PRN (15:35)
[2021-04-11] MEDS: oxyCODONE 5MG TAB PO PRN ×2 (15:43→16:15)
[2021-04-11 17:00] VITALS: BP 134/68
== END 2021-04-11 17:34 | disposition home or self-care (01) ==
LOC: M SDC 11:24
PROVIDERS: ATTEND Surgery
DX: K43.0 Incisional hernia with obstruction, without gangrene (principal); Q07.00 Arnold-Chiari syndrome without spina bifida or hydrocephalus; J98.9 Respiratory disorder, unspecified; M19.90 Unspecified osteoarthritis, unspecified site; M48.00 Spinal stenosis, site unspecified; F32.9 Major depressive disorder, single episode, unspecified; R51.9 Headache, unspecified; G62.9 Polyneuropathy, unspecified; G93.5 Compression of brain; Z86.711 Personal history of pulmonary embolism; Z88.2 Allergy status to sulfonamides; Z91.041 Radiographic dye allergy status; Z79.899 Other long term (current) drug therapy; Z79.01 Long term (current) use of anticoagulants; Z79.891 Long term (current) use of opiate analgesic
CPT/HCPCS: 49655; C1781; J0131; J0690; J1100; J2250; J2405; J3010; S2900

== ENCOUNTER → 2021-10-25 | Outpatient (CLI) | payer OTHER ==
[~2021-10-25] MED LIST changes: -LR 1,000 ML IV ONE; -ceFAZolin SOD 2 GM in IV 1 EA IV ONE
[2021-10-25 15:57] LABS: BASO % 0.5 % (0.0-1.0); EOS # 0.1 10^3/uL (0.0-0.5); EOS % 1.3 % (0.0-3.0); HEMATOCRIT 39.3 % (36.0-47.0); HEMOGLOBIN 12.1 g/dl (12.0-15.5); LYMPH # 2.8 10^3/uL (1.5-5.0); LYMPH % 37.2 % (24.0-44.0); MEAN CORPUSCULAR HEMOGLOBIN 25.7 pg (27.0-33.0); MEAN CORPUSCULAR HGB CONC 30.8 g/dl (32.0-36.5); MEAN CORPUSCULAR VOLUME 83.4 fl (80.0-96.0); MONO # 0.7 10^3/uL (0.0-0.8); MONO % 8.9 % (2.0-8.0); NEUTROPHILS # 3.9 10^3/uL (1.5-8.5); NEUTROPHILS % 51.7 % (36.0-66.0); PLATELET COUNT, AUTOMATED 276 10^3/uL (150-450); RED BLOOD COUNT 4.71 10^6/uL (4.00-5.40); WHITE BLOOD COUNT 7.6 10^3/uL (4.0-10.0)
[2021-10-25 16:26] LABS: ALBUMIN 3.7 GM/DL (3.2-5.2); ALT/SGPT 23 U/L (12-78); BILIRUBIN,TOTAL 0.4 MG/DL (0.2-1.0); BLOOD UREA NITROGEN 15 MG/DL (7-18); C REACTIVE PROTEIN QUANTITATIV 2.61 MG/DL (0.00-0.30); CALCIUM LEVEL 9.6 MG/DL (8.5-10.1); CARBON DIOXIDE LEVEL 28 MEQ/L (21-32); CHLORIDE LEVEL 106 MEQ/L (98-107); CREATININE FOR GFR 0.77 MG/DL (0.55-1.30); GLOMERULAR FILTRATION RATE > 60.0 (>51); GLUCOSE, FASTING 92 MG/DL (70-100); POTASSIUM SERUM 4.1 MEQ/L (3.5-5.1); RHEUMATOID FACTOR QUANT < 10.0 IU/ML (<15.0); SODIUM LEVEL 140 MEQ/L (136-145); TOTAL PROTEIN 7.2 GM/DL (6.4-8.2)
[2021-10-25 16:52] LABS: ERYTHROCYTE SEDIMENTATION RATE 33 mm/hr (0-30)
[2021-10-30 01:07] LABS: ANA (HEP2) Positive (.); CYCLIC CITRULLINATED PEPTIDE 7 units (0-19)
== END ==
LOC: M WUC 13:31
PROVIDERS: ATTEND Physician Assistant
DX: M25.50 Pain in unspecified joint (principal)

== ENCOUNTER → 2021-10-25 | Outpatient (REF) | payer OTHER | LOC: M SFHCLERA 10:56 | PROVIDERS: ATTEND Physician Assistant | DX: Z53.9 Procedure and treatment not carried out, unspecified reason (principal) ==

== ENCOUNTER 2021-12-18 08:09 | Emergency (ER) | payer OTHER ==
[~2021-12-18] VITALS: Ht 157.5 cm; Wt 115.9 kg
[2021-12-18] MEDS ORDERED: GABA-283 PO (11:19)
[2021-12-18] MEDS ORDERED: CYCL-707 PO (11:19)
[2021-12-18] MEDS ORDERED: GABAPENTIN 400MG CAP PO ONE (11:45)
[2021-12-18 12:05] VITALS: BP 147/64
== END 2021-12-18 12:06 | disposition home or self-care (01) ==
LOC: M ED 08:09
DX: M54.16 Radiculopathy, lumbar region (principal); M79.671 Pain in right foot; R93.7 Abnormal findings on diagnostic imaging of other parts of musculoskeletal system; Z88.1 Allergy status to other antibiotic agents; Z88.2 Allergy status to sulfonamides

== ENCOUNTER → 2022-01-09 | Outpatient (CLI) | payer OTHER ==
[~2022-01-09] MED LIST changes: +CYCL-707 PO
== END ==
LOC: M SOG 08:38
PROVIDERS: ATTEND Orthopaedic Surgery
DX: M54.50 Low back pain, unspecified (principal)

== ENCOUNTER 2022-01-17 23:35 | Inpatient (IN) | payer OTHER ==
[~2022-01-17] VITALS: Ht 157.5 cm; Wt 112.0 kg
[2022-01-17] MEDS ORDERED: ACET-910 PO (23:48)
[2022-01-18] VITALS (19 sets, daily range): BP systolic 68–142; BP diastolic 51–89; O2SAT 94–100
[2022-01-18] MEDS ORDERED: IBUPROFEN 600MG TAB PO ONE (00:10)
[2022-01-18 00:40] LABS: BASO % 0.2 % (0.0-1.0); HEMATOCRIT 40.5 % (36.0-47.0); LYMPH # 0.9 10^3/uL (1.5-5.0); LYMPH % 8.2 % (24.0-44.0); MEAN CORPUSCULAR HEMOGLOBIN 26.3 pg (27.0-33.0); MEAN CORPUSCULAR HGB CONC 32.1 g/dl (32.0-36.5); MEAN CORPUSCULAR VOLUME 81.8 fl (80.0-96.0); MONO # 0.8 10^3/uL (0.0-0.8); NEUTROPHILS % 84.2 % (36.0-66.0); PLATELET COUNT, AUTOMATED 191 10^3/uL (150-450); RED BLOOD COUNT 4.95 10^6/uL (4.00-5.40); WHITE BLOOD COUNT 10.7 10^3/uL (4.0-10.0)
[2022-01-18] MEDS ORDERED: NS 1,000 ML IV ONE (00:40)
[2022-01-18 00:53] LABS: INR 1.29; PROTHROMBIN TIME 16.5 SECONDS (12.7-14.5)
[2022-01-18 00:54] LABS: PARTIAL THROMBOPLASTIN TIME 41.1 SECONDS (25.9-37.0)
[2022-01-18] MEDS ORDERED: FIORICET TAB PO ONE (00:55)
[2022-01-18 01:12] LABS: CK-MB VALUE MASS 5.3 NG/ML (<3.6); MB/CK RELATIVE INDEX 0.9 (< OR =4)
[2022-01-18 01:17] LABS: ALBUMIN 3.5 GM/DL (3.2-5.2); ALT/SGPT 39 U/L (12-78); AMYLASE 39 U/L (25-115); BILIRUBIN,DIRECT 0.4 MG/DL (0.0-0.2); BILIRUBIN,TOTAL 0.7 MG/DL (0.2-1.0); BLOOD UREA NITROGEN 12 MG/DL (7-18); CALCIUM LEVEL 8.8 MG/DL (8.5-10.1); CARBON DIOXIDE LEVEL 26 MEQ/L (21-32); CHLORIDE LEVEL 94 MEQ/L (98-107); CREATININE FOR GFR 0.94 MG/DL (0.55-1.30); GLOMERULAR FILTRATION RATE > 60.0 (>51); GLUCOSE, FASTING 135 MG/DL (70-100); LIPASE 100 U/L (73-393); POTASSIUM SERUM 3.8 MEQ/L (3.5-5.1); SODIUM LEVEL 129 MEQ/L (136-145); TOTAL PROTEIN 7.4 GM/DL (6.4-8.2)
[2022-01-18] MEDS ORDERED: ACETAMINOPHEN 325 MG TAB PO ONE (02:10)
[2022-01-18] MEDS ORDERED: ONDANSETRON 4MG 2ML VIAL As Ordered ONE (02:31)
[2022-01-18] MEDS ORDERED: ONDANSETRON 4MG 2ML VIAL IV ONE (02:35)
[2022-01-18] MEDS ORDERED: cefTRIAXone SOD 2 GM in D5W MINI-BAG PLUS 50 ML IV ONE (02:45)
[2022-01-18] MEDS ORDERED: AZITHROMYCIN 250MG TABLET PO ONE (02:45)
[2022-01-18] MEDS ORDERED: GABA600T4 PO (03:08)
[2022-01-18] MEDS ORDERED: HOME MED LIST COMPLETE! XX SCH (03:10)
[2022-01-18] MEDS ORDERED: ALBUTEROL 90 MCG/ACT 8GM HFA INHALER INH PRN (04:10)
[2022-01-18] MEDS ORDERED: NS 1,000 ML IV SCH (04:10)
[2022-01-18] MEDS ORDERED: tiZANidine 4 MG TAB PO PRN (04:30)
[2022-01-18 06:36] LABS: BLOOD UREA NITROGEN 11 MG/DL (7-18); CALCIUM LEVEL 8.5 MG/DL (8.5-10.1); CARBON DIOXIDE LEVEL 24 MEQ/L (21-32); CHLORIDE LEVEL 101 MEQ/L (98-107); CREATININE FOR GFR 0.77 MG/DL (0.55-1.30); GLOMERULAR FILTRATION RATE > 60.0 (>51); GLUCOSE, FASTING 141 MG/DL (70-100); POTASSIUM SERUM 3.5 MEQ/L (3.5-5.1); SODIUM LEVEL 133 MEQ/L (136-145)
[2022-01-18] MEDS: DOXYCYCLINE HYCLATE 100MG TABLET PO SCH ×2 (09:25→21:08)
[2022-01-18] MEDS: GABAPENTIN 300 MG CAP PO SCH ×3 (09:25→21:08)
[2022-01-18] MEDS: ACETAMINOPHEN TAB 650MG DOSE (2X325MG) PO PRN ×2 (12:18→21:08)
[2022-01-18] MEDS: traMADol 50 MG TAB PO PRN ×2 (14:09→21:50)
[2022-01-18] MEDS: guaiFENesin ER 600 MG TAB PO SCH ×2 (14:37→21:08)
[2022-01-18] MEDS: BENZONATATE 100MG CAPSULE PO SCH ×2 (15:34→21:08)
[2022-01-18] MEDS ORDERED: NS 0.45% 500 ML IV ONE (17:00)
[2022-01-18] MEDS ORDERED: MIDODRINE 5 MG TAB PO ONE (17:00)
[2022-01-18] MEDS: LR 1,000 ML IV SCH (17:03)
[2022-01-18 17:12] LABS: HEMATOCRIT 39.3 % (36.0-47.0); MEAN CORPUSCULAR HEMOGLOBIN 25.6 pg (27.0-33.0); MEAN CORPUSCULAR HGB CONC 30.5 g/dl (32.0-36.5); MEAN CORPUSCULAR VOLUME 83.8 fl (80.0-96.0); PLATELET COUNT, AUTOMATED 171 10^3/uL (150-450); RED BLOOD COUNT 4.69 10^6/uL (4.00-5.40); WHITE BLOOD COUNT 12.6 10^3/uL (4.0-10.0)
[2022-01-18 17:40] LABS: BLOOD UREA NITROGEN 11 MG/DL (7-18); CALCIUM LEVEL 8.7 MG/DL (8.5-10.1); CARBON DIOXIDE LEVEL 27 MEQ/L (21-32); CHLORIDE LEVEL 103 MEQ/L (98-107); CREATININE FOR GFR 0.92 MG/DL (0.55-1.30); GLOMERULAR FILTRATION RATE > 60.0 (>51); GLUCOSE, FASTING 135 MG/DL (70-100); POTASSIUM SERUM 4.2 MEQ/L (3.5-5.1); SODIUM LEVEL 135 MEQ/L (136-145)
[2022-01-18] MEDS ORDERED: cefTRIAXone SOD 1 GM in D5W MINI-BAG PLUS 50 ML IV SCH (21:00)
[2022-01-18] MEDS: RIVAROXABAN 20MG TAB (XARELTO) PO SCH (21:08)
[2022-01-18] MEDS ORDERED: IBUPROFEN 600MG TAB PO PRN (21:45)
[2022-01-19] VITALS (20 sets, daily range): BP systolic 103–138; BP diastolic 60–79; O2SAT 90–98
[2022-01-19] MEDS ORDERED: PROCHLORPERAZINE 5MG TAB PO ONE (00:25)
[2022-01-19] MEDS: ACETAMINOPHEN TAB 650MG DOSE (2X325MG) PO PRN ×4 (01:14→20:57)
[2022-01-19] MEDS: LR 1,000 ML IV SCH (03:17)
[2022-01-19 06:54] LABS: HEMATOCRIT 38.7 % (36.0-47.0); HEMOGLOBIN 11.9 g/dl (12.0-15.5); MEAN CORPUSCULAR HEMOGLOBIN 26.1 pg (27.0-33.0); MEAN CORPUSCULAR HGB CONC 30.7 g/dl (32.0-36.5); MEAN CORPUSCULAR VOLUME 84.9 fl (80.0-96.0); PLATELET COUNT, AUTOMATED 146 10^3/uL (150-450); RED BLOOD COUNT 4.56 10^6/uL (4.00-5.40); WHITE BLOOD COUNT 8.7 10^3/uL (4.0-10.0)
[2022-01-19 07:18] LABS: BLOOD UREA NITROGEN 13 MG/DL (7-18); CALCIUM LEVEL 8.3 MG/DL (8.5-10.1); CARBON DIOXIDE LEVEL 23 MEQ/L (21-32); CHLORIDE LEVEL 102 MEQ/L (98-107); CREATININE FOR GFR 0.82 MG/DL (0.55-1.30); GLOMERULAR FILTRATION RATE > 60.0 (>51); GLUCOSE, FASTING 92 MG/DL (70-100); POTASSIUM SERUM 3.9 MEQ/L (3.5-5.1); SODIUM LEVEL 133 MEQ/L (136-145)
[2022-01-19 07:31] LABS: LYMPHOCYTES 5 % (16-44); MONOCYTES 4 % (0-5); NEUTROPHILS 77 % (28-66); PLASMA CELL 1 % (0-0)
[2022-01-19 07:34] LABS: PLATELET ESTIMATE DECREASED (NORMAL)
[2022-01-19] MEDS: LEVALBUTEROL 1.25 MG/0.5 ML CONCENTRATE NEB INH SCH ×3 (09:22→19:55)
[2022-01-19] MEDS: cefTRIAXone SOD 2 GM in D5W MINI-BAG PLUS 50 ML IV SCH (09:24)
[2022-01-19] MEDS: DOXYCYCLINE HYCLATE 100MG TABLET PO SCH ×2 (09:25→20:57)
[2022-01-19] MEDS: BENZONATATE 100MG CAPSULE PO SCH ×3 (09:25→20:57)
[2022-01-19] MEDS: GABAPENTIN 300 MG CAP PO SCH ×3 (09:25→20:57)
[2022-01-19] MEDS: guaiFENesin ER 600 MG TAB PO SCH ×2 (09:25→20:57)
[2022-01-19] MEDS: RIVAROXABAN 20MG TAB (XARELTO) PO SCH (20:57)
[2022-01-19] MEDS ORDERED: cefTRIAXone SOD 2 GM in D5W MINI-BAG PLUS 50 ML IV SCH (21:00)
[2022-01-20] VITALS (17 sets, daily range): BP systolic 112–143; BP diastolic 57–82; O2SAT 94–98
[2022-01-20] MEDS: traMADol 50 MG TAB PO PRN (00:03)
[2022-01-20] MEDS: ACETAMINOPHEN TAB 650MG DOSE (2X325MG) PO PRN ×3 (02:09→16:12)
[2022-01-20 06:21] LABS: HEMATOCRIT 37.4 % (36.0-47.0); HEMOGLOBIN 11.4 g/dl (12.0-15.5); MEAN CORPUSCULAR HEMOGLOBIN 25.4 pg (27.0-33.0); MEAN CORPUSCULAR HGB CONC 30.5 g/dl (32.0-36.5); MEAN CORPUSCULAR VOLUME 83.5 fl (80.0-96.0); PLATELET COUNT, AUTOMATED 188 10^3/uL (150-450); RED BLOOD COUNT 4.48 10^6/uL (4.00-5.40); WHITE BLOOD COUNT 6.4 10^3/uL (4.0-10.0)
[2022-01-20 06:48] LABS: BLOOD UREA NITROGEN 6 MG/DL (7-18); CALCIUM LEVEL 8.7 MG/DL (8.5-10.1); CARBON DIOXIDE LEVEL 27 MEQ/L (21-32); CHLORIDE LEVEL 105 MEQ/L (98-107); CREATININE FOR GFR 0.54 MG/DL (0.55-1.30); GLOMERULAR FILTRATION RATE > 60.0 (>51); GLUCOSE, FASTING 114 MG/DL (70-100); POTASSIUM SERUM 3.5 MEQ/L (3.5-5.1); SODIUM LEVEL 137 MEQ/L (136-145)
[2022-01-20 08:00] LABS: ATYPICAL LYMPH 3 % (0-5); BASOPHILS 1 % (0-1); LYMPHOCYTES 20 % (16-44); MONOCYTES 4 % (0-5); NEUTROPHILS 66 % (28-66)
[2022-01-20 08:03] LABS: MICROCYTOSIS 1+; OVALOCYTES 1+; PLATELET ESTIMATE NORMAL (NORMAL)
[2022-01-20] MEDS: LEVALBUTEROL 1.25 MG/0.5 ML CONCENTRATE NEB INH SCH ×3 (08:38→19:34)
[2022-01-20] MEDS: DOXYCYCLINE HYCLATE 100MG TABLET PO SCH ×2 (09:14→20:05)
[2022-01-20] MEDS: guaiFENesin ER 600 MG TAB PO SCH ×2 (09:14→20:04)
[2022-01-20] MEDS: BENZONATATE 100MG CAPSULE PO SCH ×3 (09:14→20:04)
[2022-01-20] MEDS: GABAPENTIN 300 MG CAP PO SCH ×3 (09:14→20:04)
[2022-01-20] MEDS: cefTRIAXone SOD 2 GM in D5W MINI-BAG PLUS 50 ML IV SCH (09:16)
[2022-01-20] MEDS: RIVAROXABAN 20MG TAB (XARELTO) PO SCH (20:04)
[2022-01-21 00:30] VITALS: BP 135/71
[2022-01-21 04:10] VITALS: BP 153/76
[2022-01-21] MEDS: traMADol 50 MG TAB PO PRN (04:19)
[2022-01-21 06:18] LABS: HEMATOCRIT 36.2 % (36.0-47.0); HEMOGLOBIN 11.1 g/dl (12.0-15.5); MEAN CORPUSCULAR HEMOGLOBIN 25.6 pg (27.0-33.0); MEAN CORPUSCULAR HGB CONC 30.7 g/dl (32.0-36.5); MEAN CORPUSCULAR VOLUME 83.6 fl (80.0-96.0); PLATELET COUNT, AUTOMATED 233 10^3/uL (150-450); RED BLOOD COUNT 4.33 10^6/uL (4.00-5.40); WHITE BLOOD COUNT 5.8 10^3/uL (4.0-10.0)
[2022-01-21 06:48] LABS: BLOOD UREA NITROGEN 6 MG/DL (7-18); CALCIUM LEVEL 8.9 MG/DL (8.5-10.1); CARBON DIOXIDE LEVEL 29 MEQ/L (21-32); CHLORIDE LEVEL 105 MEQ/L (98-107); CREATININE FOR GFR 0.54 MG/DL (0.55-1.30); GLOMERULAR FILTRATION RATE > 60.0 (>51); GLUCOSE, FASTING 109 MG/DL (70-100); POTASSIUM SERUM 3.5 MEQ/L (3.5-5.1); SODIUM LEVEL 139 MEQ/L (136-145)
[2022-01-21 07:50] LABS: ATYPICAL LYMPH 5 % (0-5); EOSINOPHILS 2 % (0-3); LYMPHOCYTES 30 % (16-44); MONOCYTES 2 % (0-5); NEUTROPHILS 61 % (28-66); PLATELET ESTIMATE NORMAL (NORMAL)
[2022-01-21 07:54] LABS: MICROCYTOSIS 1+
[2022-01-21] MEDS: LEVALBUTEROL 1.25 MG/0.5 ML CONCENTRATE NEB INH SCH ×3 (08:09→20:00)
[2022-01-21 08:27] VITALS: BP 141/76
[2022-01-21] MEDS: cefTRIAXone SOD 2 GM in D5W MINI-BAG PLUS 50 ML IV SCH (09:51)
[2022-01-21] MEDS: ACETAMINOPHEN TAB 650MG DOSE (2X325MG) PO PRN (09:52)
[2022-01-21] MEDS: DOXYCYCLINE HYCLATE 100MG TABLET PO SCH ×2 (09:53→20:18)
[2022-01-21] MEDS: guaiFENesin ER 600 MG TAB PO SCH ×2 (09:53→20:18)
[2022-01-21] MEDS: BENZONATATE 100MG CAPSULE PO SCH ×3 (09:53→20:17)
[2022-01-21] MEDS: GABAPENTIN 300 MG CAP PO SCH ×3 (09:53→20:17)
[2022-01-21] MEDS ORDERED: FLUBLOK(EGG FREE)(QUAD)INFLUENZA VACC 0.5ML SYRINGE 18YRS & OLDER IM.IMMUN ONE (12:00)
[2022-01-21 20:00] VITALS: BP 140/85
[2022-01-21] MEDS: CEFDINIR 300 MG CAP (OMNICEF) PO SCH (20:17)
[2022-01-21] MEDS: RIVAROXABAN 20MG TAB (XARELTO) PO SCH (20:18)
[2022-01-22 05:23] LABS: HEMATOCRIT 36.2 % (36.0-47.0); HEMOGLOBIN 11.1 g/dl (12.0-15.5); MEAN CORPUSCULAR HEMOGLOBIN 25.4 pg (27.0-33.0); MEAN CORPUSCULAR HGB CONC 30.7 g/dl (32.0-36.5); MEAN CORPUSCULAR VOLUME 82.8 fl (80.0-96.0); PLATELET COUNT, AUTOMATED 288 10^3/uL (150-450); RED BLOOD COUNT 4.37 10^6/uL (4.00-5.40)
[2022-01-22 05:45] LABS: ATYPICAL LYMPH 4 % (0-5); EOSINOPHILS 2 % (0-3); LYMPHOCYTES 32 % (16-44); METAMYELOCYTES 1 % (0-0); MONOCYTES 7 % (0-5); NEUTROPHILS 54 % (28-66); PLATELET ESTIMATE NORMAL (NORMAL)
[2022-01-22 05:46] LABS: ANISOCYTOSIS 1+; HYPOCHROMASIA 1+
[2022-01-22 05:55] LABS: BLOOD UREA NITROGEN 8 MG/DL (7-18); CALCIUM LEVEL 9.6 MG/DL (8.5-10.1); CARBON DIOXIDE LEVEL 30 MEQ/L (21-32); CHLORIDE LEVEL 104 MEQ/L (98-107); CREATININE FOR GFR 0.61 MG/DL (0.55-1.30); GLOMERULAR FILTRATION RATE > 60.0 (>51); GLUCOSE, FASTING 110 MG/DL (70-100); POTASSIUM SERUM 3.4 MEQ/L (3.5-5.1); SODIUM LEVEL 138 MEQ/L (136-145)
[2022-01-22] MEDS: LEVALBUTEROL 1.25 MG/0.5 ML CONCENTRATE NEB INH SCH ×3 (07:58→20:09)
[2022-01-22 08:00] VITALS: BP 149/78
[2022-01-22] MEDS: GABAPENTIN 300 MG CAP PO SCH ×3 (08:13→20:21)
[2022-01-22] MEDS: BENZONATATE 100MG CAPSULE PO SCH ×3 (08:13→20:21)
[2022-01-22] MEDS: CEFDINIR 300 MG CAP (OMNICEF) PO SCH ×2 (08:13→20:21)
[2022-01-22] MEDS: guaiFENesin ER 600 MG TAB PO SCH ×2 (08:13→20:21)
[2022-01-22] MEDS: DOXYCYCLINE HYCLATE 100MG TABLET PO SCH ×2 (08:13→20:21)
[2022-01-22] MEDS: traMADol 50 MG TAB PO PRN (08:26)
[2022-01-22 16:07] LABS: MAGNESIUM LEVEL 2.2 MG/DL (1.8-2.4)
[2022-01-22 16:57] VITALS: BP 108/81
[2022-01-22 19:46] VITALS: BP_SYST 118; BP_SYST 120; BP_SYST 130; BP_DIAS 78; BP_DIAS 79; BP_DIAS 86
[2022-01-22 19:47] LABS: FREE THYROXINE INDEX 3.6 % (1.3-4.8); THYROID STIMULATING HORMONE 1.52 uIU/ML (0.358-3.740); THYROXINE (T4) 10.4 UG/DL (4.5-12.0)
[2022-01-22 20:08] LABS: VENOUS BASE EXCESS 2.6 (-2.0-2.0); VENOUS HCO3 26.1 MEQ/L (23.0-27.0); VENOUS O2 SATURATION 97.4 % (60.0-80.0); VENOUS PARTIAL PRESSURE CO2 36.6 mmHg (38.0-50.0); VENOUS PARTIAL PRESSURE O2 91.8 mmHg (30.0-50.0); VENOUS PH 7.471 UNITS (7.330-7.430); VENOUS STANDARD HCO3 26.8 MEQ/L; VENOUS TOTAL CO2 27.2 MEQ/L (24.0-28.0)
[2022-01-22 20:09] LABS: HEMATOCRIT 36.4 % (36.0-47.0); HEMOGLOBIN 11.5 g/dl (12.0-15.5); MEAN CORPUSCULAR HEMOGLOBIN 25.7 pg (27.0-33.0); MEAN CORPUSCULAR HGB CONC 31.6 g/dl (32.0-36.5); MEAN CORPUSCULAR VOLUME 81.4 fl (80.0-96.0); PLATELET COUNT, AUTOMATED 326 10^3/uL (150-450); RED BLOOD COUNT 4.47 10^6/uL (4.00-5.40); WHITE BLOOD COUNT 9.6 10^3/uL (4.0-10.0)
[2022-01-22] MEDS: RIVAROXABAN 20MG TAB (XARELTO) PO SCH (20:21)
[2022-01-22] MEDS: ACETAMINOPHEN TAB 650MG DOSE (2X325MG) PO PRN (20:22)
[2022-01-22 20:44] LABS: BLOOD UREA NITROGEN 10 MG/DL (7-18); CALCIUM LEVEL 9.9 MG/DL (8.5-10.1); CARBON DIOXIDE LEVEL 27 MEQ/L (21-32); CHLORIDE LEVEL 103 MEQ/L (98-107); CREATININE FOR GFR 0.71 MG/DL (0.55-1.30); GLOMERULAR FILTRATION RATE > 60.0 (>51); GLUCOSE, FASTING 132 MG/DL (70-100); MAGNESIUM LEVEL 1.9 MG/DL (1.8-2.4); POTASSIUM SERUM 3.1 MEQ/L (3.5-5.1); SODIUM LEVEL 137 MEQ/L (136-145)
[2022-01-22] MEDS ORDERED: NS 1,000 ML IV SCH (21:00)
[2022-01-22] MEDS: POTASSIUM CHLORIDE 10MEQ SR TABLET PO SCH ×2 (21:14→23:54)
[2022-01-22 22:00] VITALS: BP 111/69
[2022-01-23 06:00] VITALS: BP 137/83
[2022-01-23 06:07] VITALS: BP_SYST 118; BP_SYST 140; BP_SYST 151; BP_DIAS 70; BP_DIAS 83; BP_DIAS 99
[2022-01-23 08:08] LABS: HEMATOCRIT 35.4 % (36.0-47.0); HEMOGLOBIN 11.1 g/dl (12.0-15.5); MEAN CORPUSCULAR HGB CONC 31.4 g/dl (32.0-36.5); MEAN CORPUSCULAR VOLUME 82.9 fl (80.0-96.0); PLATELET COUNT, AUTOMATED 328 10^3/uL (150-450); RED BLOOD COUNT 4.27 10^6/uL (4.00-5.40); WHITE BLOOD COUNT 6.7 10^3/uL (4.0-10.0)
[2022-01-23] MEDS: BENZONATATE 100MG CAPSULE PO SCH ×3 (08:20→20:25)
[2022-01-23] MEDS: GABAPENTIN 300 MG CAP PO SCH ×3 (08:20→20:25)
[2022-01-23] MEDS: guaiFENesin ER 600 MG TAB PO SCH ×2 (08:20→20:25)
[2022-01-23] MEDS: CEFDINIR 300 MG CAP (OMNICEF) PO SCH ×2 (08:20→20:25)
[2022-01-23] MEDS: LEVALBUTEROL 1.25 MG/0.5 ML CONCENTRATE NEB INH SCH ×3 (08:24→19:56)
[2022-01-23 08:51] LABS: BLOOD UREA NITROGEN 8 MG/DL (7-18); CARBON DIOXIDE LEVEL 26 MEQ/L (21-32); CHLORIDE LEVEL 110 MEQ/L (98-107); CREATININE FOR GFR 0.59 MG/DL (0.55-1.30); GLOMERULAR FILTRATION RATE > 60.0 (>51); GLUCOSE, FASTING 110 MG/DL (70-100); POTASSIUM SERUM 4.4 MEQ/L (3.5-5.1); SODIUM LEVEL 142 MEQ/L (136-145)
[2022-01-23] MEDS ORDERED: ONDANSETRON 4MG ORAL DISINTEGRATING TAB PO PRN (08:55)
[2022-01-23] MEDS: ACETAMINOPHEN TAB 650MG DOSE (2X325MG) PO PRN (09:10)
[2022-01-23 14:16] VITALS: BP 135/82
[2022-01-23] MEDS: RIVAROXABAN 20MG TAB (XARELTO) PO SCH (20:25)
[2022-01-23] MEDS: PERCOCET 5MG/325MG TAB PO PRN (20:35)
[2022-01-23 23:08] VITALS: BP 120/74
[2022-01-24 06:15] LABS: HEMATOCRIT 32.8 % (36.0-47.0); MEAN CORPUSCULAR HGB CONC 30.5 g/dl (32.0-36.5); MEAN CORPUSCULAR VOLUME 85.2 fl (80.0-96.0); PLATELET COUNT, AUTOMATED 335 10^3/uL (150-450); RED BLOOD COUNT 3.85 10^6/uL (4.00-5.40); WHITE BLOOD COUNT 6.8 10^3/uL (4.0-10.0)
[2022-01-24 06:41] LABS: BLOOD UREA NITROGEN 9 MG/DL (7-18); CALCIUM LEVEL 8.7 MG/DL (8.5-10.1); CARBON DIOXIDE LEVEL 28 MEQ/L (21-32); CHLORIDE LEVEL 107 MEQ/L (98-107); CREATININE FOR GFR 0.62 MG/DL (0.55-1.30); GLOMERULAR FILTRATION RATE > 60.0 (>51); GLUCOSE, FASTING 107 MG/DL (70-100); POTASSIUM SERUM 4.2 MEQ/L (3.5-5.1); SODIUM LEVEL 139 MEQ/L (136-145)
[2022-01-24 06:49] VITALS: BP 118/75
[2022-01-24] MEDS: PERCOCET 5MG/325MG TAB PO PRN (07:26)
[2022-01-24] MEDS: CEFDINIR 300 MG CAP (OMNICEF) PO SCH (07:27)
[2022-01-24] MEDS: GABAPENTIN 300 MG CAP PO SCH (07:27)
[2022-01-24] MEDS: BENZONATATE 100MG CAPSULE PO SCH (07:27)
[2022-01-24] MEDS: guaiFENesin ER 600 MG TAB PO SCH (07:27)
[2022-01-24] MEDS: LEVALBUTEROL 1.25 MG/0.5 ML CONCENTRATE NEB INH SCH ×2 (09:14→13:14)
[2022-01-24] MEDS ORDERED: CEFD300CAP PO (13:53)
== END 2022-01-24 14:45 | disposition home health service (06) | DRG 720 ==
LOC: M ED 23:35 → M ED INP 01-18 04:07 → M MS5PR 01-18 07:30 → M PCU 01-18 15:35 → M MS5PR 01-22 16:35
PROVIDERS: ADMIT Internal Medicine; ATTEND Internal Medicine
DX: A41.9 Sepsis, unspecified organism (principal); J96.01 Acute respiratory failure with hypoxia; J12.1 Respiratory syncytial virus pneumonia; E87.1 Hypo-osmolality and hyponatremia; M54.2 Cervicalgia; M51.24 Other intervertebral disc displacement, thoracic region; Z86.711 Personal history of pulmonary embolism; Z79.01 Long term (current) use of anticoagulants; Z79.899 Other long term (current) drug therapy; Z88.2 Allergy status to sulfonamides; Z91.041 Radiographic dye allergy status

== ENCOUNTER → 2022-04-07 | Outpatient (CLI) | payer OTHER ==
[~2022-04-07] MED LIST changes: +ACET-910 PO; +CEFD300CAP PO; +GABA600T4 PO
== END ==
LOC: M SOG 14:22
PROVIDERS: ATTEND Orthopaedic Surgery
DX: M17.11 Unilateral primary osteoarthritis, right knee (principal)

== ENCOUNTER → 2023-01-07 | Outpatient (CLI) | payer OTHER ==
[~2023-01-07] MED LIST changes: -GABA-283 PO; +GABA-284 PO
== END ==
LOC: M SOG 08:05
PROVIDERS: ATTEND Orthopaedic Surgery
DX: M25.562 Pain in left knee (principal); M25.561 Pain in right knee

== ENCOUNTER → 2023-07-10 | Outpatient (REF) | payer OTHER | LOC: M SFHCADAM 16:25 | PROVIDERS: ATTEND Family Medicine | DX: Q07.00 Arnold-Chiari syndrome without spina bifida or hydrocephalus (principal); Z79.01 Long term (current) use of anticoagulants; I26.99 Other pulmonary embolism without acute cor pulmonale; E78.5 Hyperlipidemia, unspecified; Z13.1 Encounter for screening for diabetes mellitus; M10.071 Idiopathic gout, right ankle and foot ==

== ENCOUNTER → 2023-07-13 | Outpatient (CLI) | payer OTHER ==
[2023-07-13 11:13] LABS: HEMATOCRIT 40.4 % (36.0-47.0); HEMOGLOBIN 12.4 g/dl (12.0-15.5); MEAN CORPUSCULAR HEMOGLOBIN 26.2 pg (27.0-33.0); MEAN CORPUSCULAR HGB CONC 30.7 g/dl (32.0-36.5); MEAN CORPUSCULAR VOLUME 85.2 fl (80.0-96.0); PLATELET COUNT, AUTOMATED 242 10^3/uL (150-450); RED BLOOD COUNT 4.74 10^6/uL (4.00-5.40); WHITE BLOOD COUNT 6.8 10^3/uL (4.0-10.0)
[2023-07-13 11:29] LABS: HEMOGLOBIN A1c 5.8 % (4.0-6.0)
[2023-07-13 11:36] LABS: URIC ACID 6.1 MG/DL (3.1-7.8)
[2023-07-13 11:39] LABS: ALBUMIN 3.6 G/DL (3.2-5.2); ALKALINE PHOSPHATASE 94 U/L (46-116); ALT/SGPT 17 U/L (7.0-40); AST/SGOT 17 U/L (<34); BILIRUBIN,TOTAL 0.5 MG/DL (0.3-1.2); BLOOD UREA NITROGEN 16 MG/DL (9-23); CALCIUM LEVEL 9.5 MG/DL (8.3-10.6); CARBON DIOXIDE LEVEL 30 MMOL/L (20-31); CHLORIDE LEVEL 108 MMOL/L (98-107); CHOLESTEROL LEVEL 194 MG/DL (<200); CHOLESTEROL RISK RATIO 4.48 (<5); CREATININE FOR GFR 0.66 MG/DL (0.55-1.30); GLOMERULAR FILTRATION RATE > 60.0 (>45); GLUCOSE, FASTING 86 MG/DL (74-106); HDL CHOLESTEROL 43.3 MG/DL (>40); LDL CHOLESTEROL 134.7 MG/DL (<100); NON-HDL-C 150.7 MG/DL; SODIUM LEVEL 141 MMOL/L (136-145); TRIGLYCERIDES LEVEL 80 MG/DL (<150)
[2023-07-13 11:43] LABS: FREE T4 1.01 NG/DL (0.89-1.76); THYROID STIMULATING HORMONE 4.076 uIU/ML (0.55-4.78)
== END ==
LOC: M WUC 08:24
PROVIDERS: ATTEND Family Medicine
DX: Q07.00 Arnold-Chiari syndrome without spina bifida or hydrocephalus (principal); Z79.01 Long term (current) use of anticoagulants; I26.99 Other pulmonary embolism without acute cor pulmonale; E78.5 Hyperlipidemia, unspecified

== ENCOUNTER → 2023-10-13 | Outpatient (CLI) | payer OTHER | LOC: M LAB 08:50 | PROVIDERS: ATTEND Family Medicine | DX: Z79.01 Long term (current) use of anticoagulants (principal) ==

== ENCOUNTER → 2023-10-14 | Outpatient (CLI) | payer OTHER | LOC: M SOG 07:59 | PROVIDERS: ATTEND Orthopaedic Surgery | DX: M17.0 Bilateral primary osteoarthritis of knee (principal) ==

== ENCOUNTER → 2023-12-29 | Outpatient (CLI) | payer OTHER ==
[~2023-12-29] MED LIST changes: +GABA-1490 PO; -GABA600T4 PO
== END ==
LOC: M LAB 16:30
PROVIDERS: ATTEND Family Medicine
DX: I26.99 Other pulmonary embolism without acute cor pulmonale (principal)

== ENCOUNTER → 2023-12-31 | Outpatient (CLI) | payer OTHER | LOC: M RAD 06:34 | PROVIDERS: ATTEND Family Medicine | DX: M47.22 Other spondylosis with radiculopathy, cervical region (principal); Q07.00 Arnold-Chiari syndrome without spina bifida or hydrocephalus; M25.78 Osteophyte, vertebrae ==

== ENCOUNTER → 2024-06-03 | Outpatient (REF) | payer OTHER ==
[2024-06-03 19:06] LABS: HEMATOCRIT 41.2 % (36.0-47.0); HEMOGLOBIN 12.8 g/dl (12.0-15.5); MEAN CORPUSCULAR HEMOGLOBIN 25.8 pg (27.0-33.0); MEAN CORPUSCULAR HGB CONC 31.1 g/dl (32.0-36.5); MEAN CORPUSCULAR VOLUME 82.9 fl (80.0-96.0); PLATELET COUNT, AUTOMATED 292 10^3/uL (150-450); RED BLOOD COUNT 4.97 10^6/uL (4.00-5.40); WHITE BLOOD COUNT 8.4 10^3/uL (4.0-10.0)
[2024-06-03 19:29] LABS: URIC ACID 7.4 MG/DL (3.1-7.8)
[2024-06-03 19:32] LABS: ALBUMIN 3.8 G/DL (3.2-5.2); ALKALINE PHOSPHATASE 103 U/L (35-104); ALT/SGPT 17 U/L (7.0-40); AST/SGOT 20 U/L (<34); BILIRUBIN,TOTAL 0.3 MG/DL (0.3-1.2); BLOOD UREA NITROGEN 13 MG/DL (9-23); CALCIUM LEVEL 9.6 MG/DL (8.3-10.6); CARBON DIOXIDE LEVEL 27 MMOL/L (20-31); CHLORIDE LEVEL 103 MMOL/L (98-107); CHOLESTEROL LEVEL 218 MG/DL (<200); CHOLESTEROL RISK RATIO 3.83 (<5); CREATININE FOR GFR 0.65 MG/DL (0.55-1.30); GLOMERULAR FILTRATION RATE > 60.0 (>45); GLUCOSE, FASTING 113 MG/DL (74-106); HDL CHOLESTEROL 56.9 MG/DL (>40); LDL CHOLESTEROL 137.1 MG/DL (<100); NON-HDL-C 161.1 MG/DL; POTASSIUM SERUM 3.9 MMOL/L (3.5-5.1); SODIUM LEVEL 140 MMOL/L (136-145); TOTAL PROTEIN 7.6 G/DL (5.7-8.2); TRIGLYCERIDES LEVEL 120 MG/DL (<150)
[2024-06-03 19:34] LABS: FREE T4 1.05 NG/DL (0.89-1.76); THYROID STIMULATING HORMONE 2.286 uIU/ML (0.55-4.78)
[2024-06-03 19:47] LABS: HEMOGLOBIN A1c 5.7 % (4.0-6.0)
== END ==
LOC: M SFHCADAM 13:49
PROVIDERS: ATTEND Family Medicine
DX: Q07.00 Arnold-Chiari syndrome without spina bifida or hydrocephalus (principal); Z79.01 Long term (current) use of anticoagulants; I26.99 Other pulmonary embolism without acute cor pulmonale; E78.5 Hyperlipidemia, unspecified; M10.071 Idiopathic gout, right ankle and foot; Z13.1 Encounter for screening for diabetes mellitus

== ENCOUNTER → 2024-10-25 | Outpatient (CLI) | payer OTHER ==
[~2024-10-25] MED LIST changes: +TOPI-14 PO; +TOPI-257 PO; -TOPI100T9 PO; -TOPI200T7 PO
== END ==
LOC: M SOG 15:58
PROVIDERS: ATTEND Physician Assistant
DX: R20.2 Paresthesia of skin (principal); M25.541 Pain in joints of right hand

== ENCOUNTER 2024-12-26 07:13 | Day surgery (SDC) | payer OTHER ==
[~2024-12-26] VITALS: Ht 160 cm; Wt 114.9 kg
[~2024-12-26 07:13] MED LIST changes: +ASCO500C3 PO; +CYCL5TAB4 PO; +EXCETAB32 PO; +PREG75CA3 PO; +VITA100093 PO; +VITA1TAB82 PO; +XARE10TA PO
[2024-12-26] MEDS ORDERED: LR 1,000 ML IV SCH ×2 (07:35→09:00)
[2024-12-26] MEDS ORDERED: KETOROLAC 30 MG/ML 1 ML VIAL As Ordered ONE (07:45)
[2024-12-26] MEDS ORDERED: ONDANSETRON 4MG 2ML VIAL As Ordered ONE (07:45)
[2024-12-26] MEDS ORDERED: dexAMETHasone 4 MG/ML 1 ML VIAL As Ordered ONE (07:45)
[2024-12-26] MEDS ORDERED: LIDOCAINE 2% 100 MG/5 ML SDV (FOR ANES.) As Ordered ONE (07:45)
[2024-12-26] MEDS ORDERED: MIDAZOLAM INJ 2 MG/2 ML VIAL As Ordered ONE (07:50)
[2024-12-26] MEDS ORDERED: ACETAMINOPHEN 1000MG/100ML IV BAG As Ordered ONE (08:30)
[2024-12-26] MEDS ORDERED: HYDROMORPHONE HCL 0.5 MG/0.5 ML SYRINGE IV PRN (09:00)
[2024-12-26] MEDS ORDERED: ONDANSETRON 4MG 2ML VIAL IV PRN (09:00)
[2024-12-26 09:42] VITALS: BP 134/73; TEMP 97.2; O2SAT 98
== END 2024-12-26 10:08 | disposition home or self-care (01) ==
LOC: M SDC 07:13
PROVIDERS: ATTEND Orthopaedic Surgery Hand Surgery
DX: G56.01 Carpal tunnel syndrome, right upper limb (principal); Z79.899 Other long term (current) drug therapy; Z79.01 Long term (current) use of anticoagulants; G62.9 Polyneuropathy, unspecified; Z86.711 Personal history of pulmonary embolism; Z90.710 Acquired absence of both cervix and uterus; Z88.2 Allergy status to sulfonamides; Z91.041 Radiographic dye allergy status
CPT/HCPCS: 29848; J0131; J0665; J1100; J1885; J2250; J2405; J3010

== ENCOUNTER → 2025-02-28 | Outpatient (CLI) | payer OTHER | LOC: M ADAMS 09:27 | PROVIDERS: ATTEND Physician Assistant Medical | DX: M51.362 Other intervertebral disc degeneration, lumbar region with discogenic back pain and lower extremity pain (principal); M54.16 Radiculopathy, lumbar region ==

== ENCOUNTER → 2025-03-20 | Outpatient (CLI) | payer OTHER | LOC: M WHC 13:59 | PROVIDERS: ATTEND Physician Assistant Medical | DX: H93.A2 Pulsatile tinnitus, left ear (principal) ==